=== PATIENT | female | born 1960 | race Two or more races ===

== ENCOUNTER 2018-08-24 15:53 | Inpatient (IN) | payer MEDICARE, OTHER ==
[~2018-08-24] VITALS: Ht 167.6 cm; Wt 74.4 kg
--- NOTE | 2018-08-24 16:13 | NUR ---
RAJESH, [facility], C/O LEFT KNEE PAIN FOR A MONTH. STATES SHE THINKS SHE HAD A SEIZURE AND FELL ON HER KNEE. PT IS AOX4, AMB WITH ASSISTANCE, VSS, RR EVEN AND UNLABORED. SKIN INTACT, NO ACUTE DISTRESS NOTED. HOOKED TO MONITOR. READY FOR EVAL.
[2018-08-24] MEDS ORDERED: ACETAMINOPHEN ES 500 MG TABLET ONE (16:15)
[2018-08-24] MEDS ORDERED: ACETAMINOPHEN 325 MG TABLET PO ONE (16:30)
--- NOTE | 2018-08-24 18:00 | NUR ---
SANTIAGO GOING TO [facility] [address] TRIP #[id number]
--- NOTE | 2018-08-24 18:22 | NUR ---
PROVIDED FOOD TRAY
[2018-08-24] MEDS ORDERED: ONDANSETRON HCL/PF 4 MG/2 ML VIAL IVP PRN (18:30)
[2018-08-24] MEDS ORDERED: ZOLPIDEM TARTRATE 5 MG TABLET PO PRN (18:30)
[2018-08-24] MEDS ORDERED: MAG HYDROX/AL HYDROX/SIMETH 30 ML UDC PO PRN (18:30)
[2018-08-24] MEDS ORDERED: MAGNESIUM HYDROXIDE 30 ML UDC PO PRN (18:30)
[2018-08-24] MEDS ORDERED: Z GUARD REMEDY 2 OZ OINT TP PRN (18:30)
--- NOTE | 2018-08-24 18:39 | NUR ---
CANCELED AMBULUNZ DUE TO PT ADMISSION
[2018-08-24] MEDS ORDERED: SALICYLIC ACID TP (18:48)
[2018-08-24] MEDS ORDERED: OMEP40CA37 PO (18:48)
[2018-08-24] MEDS ORDERED: CLOT15CR63 TP (18:48)
[2018-08-24] MEDS ORDERED: DIVA-78 PO (18:48)
[2018-08-24] MEDS ORDERED: FERR325T23 PO (18:48)
[2018-08-24] MEDS ORDERED: CARB-213 EACH EAR (18:48)
[2018-08-24] MEDS ORDERED: MELO-105 PO (18:48)
[2018-08-24] MEDS ORDERED: RISP0.253 PO (18:48)
[2018-08-24] MEDS ORDERED: OXYB5TAB11 PO (18:48)
[2018-08-24] MEDS ORDERED: BETA45CR3 TP (18:48)
[2018-08-24] MEDS ORDERED: LEVE750T10 PO (18:48)
[2018-08-24] MEDS ORDERED: RANI150T8 PO (18:48)
[2018-08-24] MEDS ORDERED: ZOLP10TA6 PO (18:48)
[2018-08-24 19:40] LABS: BASOPHILS % (AUTO) 0.6 % (0.0-2.0); EOSINOPHILS % (AUTO) 1.4 % (0.0-6.0); HEMATOCRIT 34 % (33-45); HEMOGLOBIN 11.4 g/dL (11.5-14.8); LYMPHOCYTES # (AUTO) 2.2 /CMM (0.8-4.8); LYMPHOCYTES % (AUTO) 42.5 % (20.0-44.0); MEAN CORPUSCULAR HGB CONC 34 g/dl (31.0-36.0); MEAN CORPUSCULAR VOLUME 106 fL (82-100); MONOCYTES # (AUTO) 0.4 /CMM (0.1-1.30); MONOCYTES % (AUTO) 7.6 % (2.0-12.0); NEUTROPHILS # (AUTO) 2.5 /CMM (1.8-8.9); NEUTROPHILS % (AUTO) 47.9 % (43.0-81.0); PLATELET COUNT (AUTO) 185 /CMM (150-450); WHITE BLOOD COUNT (AUTO) 5.2 K/uL (4.3-11.0)
--- NOTE | 2018-08-24 19:40 | NUR ---
PT TAKEN TO RADIOLOGY VIA [facility]
[2018-08-24 19:48] LABS: CALCIUM, SERUM 8.3 mg/dL (8.5-10.1); POTASSIUM 4.4 mmol/L (3.5-5.1)
[2018-08-24 19:54] LABS: ALBUMIN 2.9 g/dL (3.4-5.0); BILIRUBIN,TOTAL 0.2 mg/dL (0.2-1.0); TOTAL PROTEIN, SERUM 6.7 g/dL (6.4-8.2)
--- NOTE | 2018-08-24 20:11 | NUR ---
MS 310-1
--- NOTE | 2018-08-24 20:37 | NUR ---
REPORT GIVEN TO RN FELIPE FOR 310-1 MS
[2018-08-24 20:56] LABS: EOSINOPHILS % (MANUAL) 3 % (0-4); LYMPHOCYTES % (MANUAL) 43 % (16-48); MONOCYTES % (MANUAL) 5 % (0-11.0); NEUTROPHILS % (MANUAL) 49 (42-76)
[2018-08-24 21:10] VITALS: BP 91/59
--- NOTE | 2018-08-24 21:10 | NUR ---
MS RN OPENING NOTES: RECEIVED PT ON ROOM AIR AND TOLERATING WELL. NO SOB NOTED. NO S/S OF DISTRESS. NOTED SOME TREMORS ON R ARM. NOTED L EYE UNABLE TO OPEN. PT VERBALIZED THAT IT HAS BEEN LIKE THAT SINCE SHE WAS IN HER 20S. PT HAS IV ON R WRIST #22G AND IS PATENT AND INTACT. CURRENTLY H/L. NOTED SWELLING ON L KNEE AND LOWER LEG. BED KEPT IN LOW, LOCKED POSITION, AND SIDE RAILS X 2UP. WILL CONTINUE TO MONITOR PT.
--- NOTE | 2018-08-24 21:15 | NUR ---
PT TRANSFERRED TO FLOOR VIA [facility]
--- NOTE | 2018-08-24 22:19 | NUR ---
MS MARX NOTES: EMETERIO VILLEDA ON FLOOR. NOTIFIED HIM THAT BP RUNS ON THE LOW SIDE. 91/59 HR 64 ; MADE AWARE AND SAID IT IS OK. CONTINUE TO MONITOR. Addendum: 08/24/18 at 2236 by RAMONA ISRAEL RN ALSO INFORMED EMETERIO VILLEDA THAT PT HAS HX OF SEIZURES AND CONCERNED ABOUT HER SEIZURE MEDS. INFORMED HIM THAT MED RECON HAS NOT BEEN DONE BUT ORDERS HAVE BEEN PUT IN. PER NOTES, CONTINUE HOME MEDS. Addendum: 08/25/18 at 0046 by RAMONA ISRAEL RN PT GOT AM SEIZURE MEDS AT [facility] PER PT.
--- NOTE | 2018-08-24 22:22 | NUR ---
MS RN NOTES: INFORMED TRANSFER IRON OPERATOR NURA VILLEDA THAT PT IS REQUESTING FOR A PATCH SHE IS A CURRENT SMOKER AND SMOKES 4 CIGS/DAY. GOT ORDER FOR NICODERM 7MG PATCH.
[2018-08-24] MEDS: NICOTINE PATCH (7MG) 7 MG PATCH.TD24 TD SCH (22:38)
--- NOTE | 2018-08-24 22:42 | NUR ---
MS RN NOTES: NICODERM 7MG PATCH APPLIED ON L UPPER ARM. WILL CONTINUE TO MONITOR.
[2018-08-24 23:35] VITALS: BP 91/50
[2018-08-24] MEDS: ACETAMINOPHEN 325 MG TABLET PO PRN (23:39)
--- NOTE | 2018-08-24 23:44 | NUR ---
MS RN NOTES: PT COMPLAINING OF L LEG/KNEE PAIN 10/10. PT VERBALIZED THAT THE TYLENOL GIVEN TO HER EARLIER HELPED. PT WAS ADMINISTERED TYLENOL 650MG PO. WILL CONTINUE TO MONITOR.
[2018-08-25 01:15] VITALS: BP 106/67
--- NOTE | 2018-08-25 01:18 | NUR ---
MS RN NOTES: PT IS VERBALIZING THAT SHE IS HAVING TROUBLE SLEEPING AND THAT SHE DOES NOT USUALLY SLEEP THIS LATE. INFORMED PT THAT PATCH MAY PREVENT HER FROM SLEEPING. SHE WOULD LIKE TO REMOVED FOR THE MEANTIME AND IS REQUESTING FOR A SLEEPING PILL.
--- NOTE | 2018-08-25 01:21 | NUR ---
MS RN NOTES: PT WAS ADMINISTERED AMBIEN 5MG PO. WILL CONTINUE TO MONITOR.
[2018-08-25 02:24] VITALS: BP 99/61
[2018-08-25] MEDS: HYDROCODONE/APAP 5/325MG 1 EACH TABLET PO PRN ×5 (02:26→20:15)
--- NOTE | 2018-08-25 02:28 | NUR ---
MS RN NOTES: PT VERBALIZING THAT THE AMBIEN 5MG PO HELPED FOR A LITTLE BIT UNTIL HER PAIN CAME BACK AGAIN PREVENTING HER FROM GOING BACK TO SLEEP. PT COMPLAINING OF 7/10 PAIN. PT WAS ADMINISTERED NORCO 5 PO. WILL CONTINUE TO MONITOR.
[2018-08-25 05:14] VITALS: BP 111/68
--- NOTE | 2018-08-25 06:15 | NUR ---
MS RN CLOSING NOTES: ALL NEEDS WERE ATTENDED AND ANTICIPATED FOR. PT KEPT CLEAN, DRY, AND COMFORTABLE. PT A/OX3. PT ON ROOM AIR AND TOLERATING WELL. NO SOB NOTED. NO S/S OF DISTRESS. PT HAS IV ON R WRIST #22G AND IS PATENT AND INTACT. CURRENTLY H/L. BED KEPT IN LOW, LOCKED POSITION, AND SIDE RAILS X 2UP. RAILS PADDED FOR SEIZURE PRECAUTIONS. BED ALARM ACTIVATED. WILL ENDORSE TO AM NURSE FOR TOÑO.
--- NOTE | 2018-08-25 06:38 | NUR ---
MS RN NOTES: PT STARTING TO COMPLAIN OF L KNEE 7/10 PAIN AGAIN. PT WAS ADMINISTERED NORCO 5 PO. WILL CONTINUE TO MONITOR AND ENDORSE TO AM NURSE.
[2018-08-25 07:35] LABS: CALCIUM, SERUM 8.6 mg/dL (8.5-10.1); CREATININE 0.8 mg/dL (0.6-1.3); PHOSPHORUS 4.3 mg/dL (2.5-4.9); POTASSIUM 4.5 mmol/L (3.5-5.1)
[2018-08-25 07:43] LABS: BASOPHILS % (AUTO) 0.7 % (0.0-2.0); EOSINOPHILS % (AUTO) 2.1 % (0.0-6.0); HEMATOCRIT 33 % (33-45); HEMOGLOBIN 11.1 g/dL (11.5-14.8); LYMPHOCYTES # (AUTO) 2.3 /CMM (0.8-4.8); LYMPHOCYTES % (AUTO) 46.8 % (20.0-44.0); MEAN CORPUSCULAR HGB CONC 33 g/dl (31.0-36.0); MEAN CORPUSCULAR VOLUME 106 fL (82-100); MONOCYTES # (AUTO) 0.5 /CMM (0.1-1.30); MONOCYTES % (AUTO) 10.4 % (2.0-12.0); PLATELET COUNT (AUTO) 196 /CMM (150-450); RED BLOOD CELL COUNT(AUTO) 3.16 MIL/uL (4.0-5.2)
[2018-08-25 08:00] VITALS: BP 103/66
--- NOTE | 2018-08-25 08:00 | NUR ---
RN NOTES RECEIVED PATIENT IN THE BED A/O X3, PATIENT HAS A LEFT TIBIA Fx. PATIENT HAS NO PAIN AT THIS TIME, SCHEDULED MEDICATION ADMINISTERED, PATIENT HAS NO ACUTE RESPIRATORY DISTRESS V/S TAKEN STABLE, ASSIST PATIENT TURN AND REPOSTION Q 2 HR. CALL LIGHT WITHIN TO REACH, SAFETY PRECAUTION MAINTAINED ALL THE TIME.
[2018-08-25 08:31] LABS: THYROID STIMULATING HORMONE 2.944 uIU/mL (0.358-3.74)
[2018-08-25 09:11] LABS: EOSINOPHILS % (MANUAL) 2 % (0-4); LYMPHOCYTES % (MANUAL) 51 % (16-48); MONOCYTES % (MANUAL) 8 % (0-11.0); NEUTROPHILS % (MANUAL) 39 (42-76)
[2018-08-25] MEDS: ACETAMINOPHEN 325 MG TABLET PO PRN (09:42)
[2018-08-25] MEDS: NICOTINE PATCH (7MG) 7 MG PATCH.TD24 TD SCH (09:42)
--- NOTE | 2018-08-25 09:42 | NUR ---
RN NOTES ADMINISTERED TYLENOL 650 MG PO PRN FOR LEFT LEG PAIN 10/14 PER PATIENT REQUEST, CALL LIGHT WITHIN TO REACH, SAFETY PRECAUTION MAINTAINED ALL THE TIME.
--- NOTE | 2018-08-25 10:54 | NUR ---
RN NOTES ADMINISTERED NARCO 5/325 MG PO PRN FOR LEFT LEG PAIN 10/14 PER PATIENT REQUEST, ENCOURAGED TO INCREASE FLUID INTAKE, V/S STABLE, ASSIST PATIENT TURN AND REPOSTION Q 2 HR.
--- NOTE | 2018-08-25 12:44 | NUR ---
RN NOTES PATIENT RESTING IN THE BED, MEDICATION WERE ADMINISTERED FOR PAIN EFFECTIVE, PATIENT ABLE TO TURN AND REPOSTION Q 2 HR, CALL LIGHT WITHIN TO REACH, SAFETY PRECAUTION MAINTAINED ALL THE TIME.
--- NOTE | 2018-08-25 15:02 | NUR ---
RN NOTES ADMINISTERED NARCO 5/325 MG PO PRN FOR LEFT KNEE PAIN 12/14 PER PATIENT REQUEST, V/S TAKEN BP 105/69, P-54. CONTINUED MONITORING.
[2018-08-25 16:00] VITALS: BP 94/61
--- NOTE | 2018-08-25 18:30 | NUR ---
RN NOTES PATIENT STABLE, MEDICATION WERE ADMINISTERED FOR PAIN EFFECTIVE. PATIENT EAT DINNER WELL, V/S STABLE. PATIENT TURN AND REPOSTION SELF IN THE BED. DVT PUMP ON. CALL LIGHT WITHIN TO REACH. ENDORSED ONCOMING NURSE FOR PLAN OF CARE.
--- NOTE | 2018-08-25 19:40 | NUR ---
RN NOTES RECEIVED PATIENT IN THE BED A/O X3, PATIENT HAS A LEFT TIBIA Fx. PATIENT HAS NO PAIN AT THIS TIME, NO SIGNS OF ACUTE RESPIRATORY DISTRESS V/S TAKEN STABLE, ASSIST PATIENT TURN AND REPOSTION Q 2 HR. CALL LIGHT WITHIN TO REACH, SAFETY PRECAUTION MAINTAINED ALL THE TIME. WILL MONITOR ACCORDINGLY.
[2018-08-25 20:00] VITALS: BP 109/59
[2018-08-25] MEDS: DIVALPROEX SODIUM 500 MG TABLET.DR PO SCH (20:15)
[2018-08-25] MEDS: risperiDONE 0.25 MG TABLET PO SCH (20:15)
[2018-08-25] MEDS: BETAMETHASONE DIP 0.05% CREAM 15 GM TUBE TP SCH (20:16)
[2018-08-25] MEDS: CLOTRIMAZOLE 1% 15 GM TUBE TP SCH (20:16)
[2018-08-25] MEDS: LEVETIRACETAM (250 MG) 250 MG TABLET PO SCH (20:16)
[2018-08-25] MEDS: MELOXICAM 7.5 MG TABLET PO SCH (20:19)
[2018-08-25] MEDS: ZOLPIDEM TARTRATE 10 MG TABLET PO SCH (22:09)
[2018-08-26] MEDS: HYDROCODONE/APAP 5/325MG 1 EACH TABLET PO PRN ×4 (02:45→19:56)
--- NOTE | 2018-08-26 02:45 | NUR ---
RN NOTES NORCO GIVEN ORDERED FOR COMPLAINTS OF LEFT KNEE PAIN. WILL MONITOR ACCORDINGLY.
--- NOTE | 2018-08-26 07:24 | NUR ---
RN NOTES PATIENT IN THE BED A/O X3, PATIENT HAS A LEFT TIBIA Fx. PATIENT HAS NO PAIN AT THIS TIME, SCHEDULED MEDICATION ADMINISTERED, PATIENT HAS NO ACUTE RESPIRATORY DISTRESS V/S TAKEN STABLE, ASSIST PATIENT TURN AND REPOSTION Q 2 HR. CALL LIGHT WITHIN TO REACH, SAFETY PRECAUTION MAINTAINED ALL THE TIME. ALL NEEDS ATTENDED AND MET WILL ENDORSE TO AM NURSE FOR CONTINUITY OF CARE.
--- NOTE | 2018-08-26 07:33 | NUR ---
MS RN Opening Notes Patient currently asleep, resting in bed. Semi-Fowlers position, supine. Seizure precautions in place. Alert and oriented x3, able to make needs known. No complaints of shortness of breath or pain at this time. Respirations even and unlabored on room air. Peripheral IV to the right wrist 22 gauge, intact, patent and saline locked. Updated patient on current plan of care and safety measures. Safety and fall precautions in place: bed in lowest and locked position, side rails up x2, bed alarm on, call light and personal possessions within reach. Room well lit and floor clear of items. Reminded patient of safety measures, verbalized understanding. Patient currently clean, dry and comfortable. Will continue to monitor and intervene as needed.
[2018-08-26 07:54] VITALS: BP 97/56
[2018-08-26 08:00] VITALS: BP 97/56
[2018-08-26] MEDS: BETAMETHASONE DIP 0.05% CREAM 15 GM TUBE TP SCH ×2 (08:44→21:20)
[2018-08-26] MEDS: CARBAMIDE PEROXIDE OTIC 15 ML BOTTLE EACH EAR SCH (08:44)
[2018-08-26] MEDS: PANTOPRAZOLE 40 MG TABLET.DR PO SCH (08:44)
[2018-08-26] MEDS: CLOTRIMAZOLE 1% 15 GM TUBE TP SCH ×2 (08:44→21:19)
[2018-08-26] MEDS: LEVETIRACETAM (250 MG) 250 MG TABLET PO SCH ×2 (08:45→21:21)
[2018-08-26] MEDS: MELOXICAM 7.5 MG TABLET PO SCH ×2 (08:45→21:20)
[2018-08-26] MEDS: FERROUS SULFATE (325 MG) 325 MG/TAB TABLET PO SCH (08:45)
[2018-08-26] MEDS: risperiDONE 0.25 MG TABLET PO SCH ×2 (08:46→21:21)
[2018-08-26] MEDS: OXYBUTYNIN CHLORIDE 5 MG TABLET PO SCH (08:46)
[2018-08-26] MEDS: DIVALPROEX SODIUM 500 MG TABLET.DR PO SCH ×2 (08:46→21:20)
[2018-08-26] MEDS: NICOTINE PATCH (7MG) 7 MG PATCH.TD24 TD SCH (08:52)
[2018-08-26 13:38] LABS: BASOPHILS % (AUTO) 0.7 % (0.0-2.0); EOSINOPHILS % (AUTO) 1.6 % (0.0-6.0); HEMATOCRIT 34 % (33-45); HEMOGLOBIN 11.6 g/dL (11.5-14.8); LYMPHOCYTES # (AUTO) 1.4 /CMM (0.8-4.8); LYMPHOCYTES % (AUTO) 32.8 % (20.0-44.0); MEAN CORPUSCULAR HGB CONC 34 g/dl (31.0-36.0); MEAN CORPUSCULAR VOLUME 105 fL (82-100); MONOCYTES # (AUTO) 0.4 /CMM (0.1-1.30); MONOCYTES % (AUTO) 9.9 % (2.0-12.0); NEUTROPHILS # (AUTO) 2.3 /CMM (1.8-8.9); PLATELET COUNT (AUTO) 163 /CMM (150-450); RED BLOOD CELL COUNT(AUTO) 3.18 MIL/uL (4.0-5.2); WHITE BLOOD COUNT (AUTO) 4.1 K/uL (4.3-11.0)
[2018-08-26 13:50] LABS: CALCIUM, SERUM 8.5 mg/dL (8.5-10.1); CREATININE 0.9 mg/dL (0.6-1.3); MAGNESIUM 1.9 mg/dL (1.8-2.4); PHOSPHORUS 4.1 mg/dL (2.5-4.9); POTASSIUM 4.3 mmol/L (3.5-5.1)
--- NOTE | 2018-08-26 15:45 | NUR ---
MS RN Note: Patient requesting pain medication at this time. Informed patient that she is not due for another Coleman for another 2 hours per medication administration record and current vital signs. Patient agitated and requesting to speak to dry charge process attendant. Referred patient to [facility] for consultation. Will page Dr. Segovia for possible pain medication changes and other possible other orders for patient decreased blood pressure and comfort. Addendum: 08/26/18 at 1606 by ALEKSANDR RODRIGUEZ RN Current blood pressure: 85/52.
[2018-08-26 16:00] VITALS: BP 85/52
[2018-08-26 16:05] VITALS: BP 85/52
--- NOTE | 2018-08-26 16:11 | NUR ---
MS RN Orders Note: Received new orders for 1,000 mL bolus and Toradol 15 mg Q8H via IV PRN for pain management. Verified and read-back per protocol. Will carry-out and monitor appropriately.
[2018-08-26] MEDS ORDERED: IV NS 0.9% 1,000 ML IV ONE (16:30)
[2018-08-26] MEDS ORDERED: KETOROLAC TROMETHAMINE INJ 30 MG/ML VIAL IV PRN (16:30)
--- NOTE | 2018-08-26 17:45 | NUR ---
MS RN Note: Per Pharmacy follow-up with Dr. Segovia, do not give Toradol medication per other medication patient is on. Noted and had not administered to patient. Order discontinued. Noted.
--- NOTE | 2018-08-26 18:44 | NUR ---
MS RN Closing Notes Patient currently asleep, resting in bed. Semi-Fowlers position, supine. Seizure precautions in place. Alert and oriented x3, able to make needs known. No complaints of shortness of breath or pain at this time. Respirations even and unlabored on room air. Peripheral IV to the right wrist 22 gauge, intact, patent and infusing NS bolus as ordered. Updated patient on current plan of care and safety measures. Safety and fall precautions in place: bed in lowest and locked position, side rails up x2, bed alarm on, call light and personal possessions within reach. Room well lit and floor clear of items. Reminded patient of safety measures, verbalized understanding. Patient currently clean, dry and comfortable. Will endorse to shift supervisor RN for continuity of care.
[2018-08-26 18:54] VITALS: BP 89/50
--- NOTE | 2018-08-26 19:35 | NUR ---
RN NOTES RECEIVED PATIENT IN BED. SLEEPING, EASILY AROUSED WITH VERBAL STIMULI, ORIENTED X3, ON ROOM AIR, TOLERATING WELL.NO SIGNS OF ACUTE RESPIRATORY DISTRESS OR DISCOMFORT NOTED AT THIS TIME. RESPIRATIONS EVEN AND UNLABORED. ALL SAFETY MEASURES IN PLACED, BED IN LOW LOCKED POSITION, BEDSIDE RAILS X 2, WILL CONTINUE TO MONITOR ACCORDINGLY.
--- NOTE | 2018-08-26 19:56 | NUR ---
RN NOTES PATIENTS WAS SCREAMING AND YELLING, COMPLAINTS OF SEVERE KNEE PAIN, 10/10, PATIENT IS IRRITABLE AND RESTLESS, NORCO 5-325MG GIVEN PER MD ORDER, ALL NEEDS ATTENDED, REPOSITIONED FOR COMFORT, WILL MONITOR.
[2018-08-26] MEDS: ZOLPIDEM TARTRATE 10 MG TABLET PO SCH (21:20)
[2018-08-27] MEDS: HYDROCODONE/APAP 5/325MG 1 EACH TABLET PO PRN ×4 (02:40→15:54)
[2018-08-27 06:37] LABS: BASOPHILS % (AUTO) 0.8 % (0.0-2.0); EOSINOPHILS % (AUTO) 2.3 % (0.0-6.0); HEMATOCRIT 31 % (33-45); HEMOGLOBIN 10.7 g/dL (11.5-14.8); LYMPHOCYTES # (AUTO) 1.9 /CMM (0.8-4.8); LYMPHOCYTES % (AUTO) 53.2 % (20.0-44.0); MEAN CORPUSCULAR HGB CONC 34 g/dl (31.0-36.0); MEAN CORPUSCULAR VOLUME 105 fL (82-100); MONOCYTES # (AUTO) 0.4 /CMM (0.1-1.30); MONOCYTES % (AUTO) 11.3 % (2.0-12.0); NEUTROPHILS # (AUTO) 1.2 /CMM (1.8-8.9); NEUTROPHILS % (AUTO) 32.4 % (43.0-81.0); PLATELET COUNT (AUTO) 144 /CMM (150-450); RED BLOOD CELL COUNT(AUTO) 2.97 MIL/uL (4.0-5.2); WHITE BLOOD COUNT (AUTO) 3.6 K/uL (4.3-11.0)
[2018-08-27 07:05] LABS: CALCIUM, SERUM 8.2 mg/dL (8.5-10.1); CREATININE 0.9 mg/dL (0.6-1.3); PHOSPHORUS 4.4 mg/dL (2.5-4.9); POTASSIUM 4.8 mmol/L (3.5-5.1)
--- NOTE | 2018-08-27 07:15 | NUR ---
RN NOTES PATIENT IS IRRITABLE AND RESTLESS, YELLS AND SCREAMS ALL THE TIME FOR THE ENTIRE SHIFT, ALL NEEDS ATTENDED, KEPT WARM, AND DRY, NORCO 5-325MG GIVEN PRN FOR PAIN, 02/13, SAFETY MEASURES INPLACED, BED IN LOW LOCKED POSITION, BEDSIDE RAILS UP X2.ENDORSED TO AM NURSE FOR CONTINUITY OF CARE.
[2018-08-27 08:00] VITALS: BP 109/63
--- NOTE | 2018-08-27 08:00 | NUR ---
MS RN OPENING NOTES Received Patient comfortable and watching TV in bed. A/O x 4. VS stable with no acute distress at this moment. Breathing even and unlabored on room air with SPO2 96% with no respiratory distress. Patient stated pain level of 8/10 on LEFT LEG. Will intervene as ordered. PIV on RIGHT WRIST 22g saline lock clean, dry, intact and flushes well. All needs rendered. Bed locked and set in lowest position with side rails x 2 up. Call light within reach. Will continue to monitor.
[2018-08-27] MEDS: PANTOPRAZOLE 40 MG TABLET.DR PO SCH (08:53)
[2018-08-27] MEDS: OXYBUTYNIN CHLORIDE 5 MG TABLET PO SCH (08:54)
[2018-08-27] MEDS: FERROUS SULFATE (325 MG) 325 MG/TAB TABLET PO SCH (08:54)
[2018-08-27] MEDS: CARBAMIDE PEROXIDE OTIC 15 ML BOTTLE EACH EAR SCH (08:54)
[2018-08-27] MEDS: DIVALPROEX SODIUM 500 MG TABLET.DR PO SCH (08:54)
[2018-08-27] MEDS: LEVETIRACETAM (250 MG) 250 MG TABLET PO SCH (08:55)
[2018-08-27] MEDS: risperiDONE 0.25 MG TABLET PO SCH (08:55)
[2018-08-27] MEDS: NICOTINE PATCH (7MG) 7 MG PATCH.TD24 TD SCH (08:55)
[2018-08-27] MEDS: MELOXICAM 7.5 MG TABLET PO SCH (08:55)
[2018-08-27] MEDS: BETAMETHASONE DIP 0.05% CREAM 15 GM TUBE TP SCH (08:56)
[2018-08-27] MEDS: CLOTRIMAZOLE 1% 15 GM TUBE TP SCH (11:37)
[2018-08-27] MEDS ORDERED: ASPI-992 PO (13:34)
[2018-08-27 16:00] VITALS: BP_SYST 100; BP_SYST 109; BP_DIAS 56; BP_DIAS 63
--- NOTE | 2018-08-27 17:08 | NUR ---
MS PRODUCTION PLANNER NOTES Patient discharged at this time going to [facility]. Report given to Elizabeth MARX. Patient in stable condition with report of tolerable pain at 7/10 on LEFT LEG. Pain medication administered at 1554. VS stable. Breathing even and unlabored with SPO2 97% RA with no acute respiratory distress. Patient agitated and verbally aggressive, unable to obtain skin assessment pictures. Med Reconciliation and Discharge Orders reviewed and explained to Patient. Patient noted with flat affect and did not verbally respond. Paperwork given to Ambulance transport. All belongings with Patient. Patient transferred to SNF via Ambulance.
== END 2018-08-27 17:35 | DRG 563 ==
LOC: ER 15:57 → MED 20:50
PROVIDERS: ADMIT Student in an Organized Health Care Education/Training Program; ATTEND Student in an Organized Health Care Education/Training Program
DX: S82.142A Displaced bicondylar fracture of left tibia, initial encounter for closed fracture (principal); E44.0 Moderate protein-calorie malnutrition; G40.409 Other generalized epilepsy and epileptic syndromes, not intractable, without status epilepticus; F31.9 Bipolar disorder, unspecified; F17.210 Nicotine dependence, cigarettes, uncomplicated; M85.80 Other specified disorders of bone density and structure, unspecified site; M25.462 Effusion, left knee; D53.9 Nutritional anemia, unspecified; E16.2 Hypoglycemia, unspecified; Z68.26 Body mass index [BMI] 26.0-26.9, adult; E88.09 Other disorders of plasma-protein metabolism, not elsewhere classified; K21.9 Gastro-esophageal reflux disease without esophagitis; W18.30XA Fall on same level, unspecified, initial encounter; Y92.89 Other specified places as the place of occurrence of the external cause
CPT/HCPCS: 36415; 73560-TC; 73700-TC; 80048-TC; 80053-TC; 80061-TC; 83735-TC; 84100-TC; 84443-TC; 85025-TC; 87081-TC; 97530-TC; G0378; J7030

== ENCOUNTER 2018-12-31 16:15 | Outpatient (CLI) | payer MEDICARE, OTHER ==
[~2018-12-31 16:15] MED LIST: ASPI-992 PO; BETA45CR3 TP; CARB-213 EACH EAR; CLOT15CR63 TP; DIVA-78 PO; FERR325T23 PO; LEVE750T10 PO; MELO-105 PO; OMEP40CA37 PO; OXYB5TAB11 PO; RANI150T8 PO; RISP0.253 PO; SALICYLIC ACID TP; ZOLP10TA6 PO
== END 2018-12-31 23:59 | disposition home or self-care (01) ==
LOC: MSC 16:15
PROVIDERS: ATTEND Anesthesiology
DX: G40.909 Epilepsy, unspecified, not intractable, without status epilepticus (principal); M54.5 Low back pain; M62.830 Muscle spasm of back; F29 Unspecified psychosis not due to a substance or known physiological condition; Z79.1 Long term (current) use of non-steroidal anti-inflammatories (NSAID); Z79.899 Other long term (current) drug therapy